=== PATIENT | male | born 1960 | race Caucasian/White ===

== ENCOUNTER 2017-02-04 01:12 | Emergency (ER) | payer OTHER ==
[2017-02-04] MEDS ORDERED: Ketorolac 60 MG/2 ML SDV IM ONE (01:52)
--- NOTE | 2017-02-04 02:00 | EDM.PDOC ---
ED HPI GENERAL MEDICAL PROBLEM - General Chief Complaint: ENT Problem Stated Complaint: R EAR PAIN Time Seen by Provider: 02/04/17 01:14 Source of Information: Reports: Patient, Family History Limitations: Reports: No Limitations - History of Present Illness INITIAL COMMENTS - FREE TEXT/NARRATIVE: right ear pain; this is a 57 year old male presents to ER with family, concerns of worsen ear pain. He reports the pain started about 2-3 days ago, has been up all night with pain. reports general healthy. Onset: Gradual Duration: Day(s): (2), Getting Worse Location: Reports: Other (right ear) Quality: Reports: Sharp, Throbbing Severity: Severe Improves with: Reports: None Worsens with: Reports: None Associated Symptoms: Reports: No Other Symptoms, Other (reports having a cold which has since resolved) - Related Data Allergies Allergy/AdvReac Type Severity Reaction Status Date / Time No Known Allergies Allergy Verified 02/04/17 01:22 Home Meds: Home Meds NK [No Known Home Meds] 02/04/17 [History] Past Medical History Oncologic (Cancer) History: Reports: Other (See Below) Other Oncologic History: kidney - Past Surgical History Male Surgical History: Reports: Nephrectomy Other Male Surgeries/Procedures: C/A Social & Family History - Tobacco Use Smoking Status *Q: Never Smoker ED ROS ENT - Review of Systems Review Of Systems: See Below Constitutional: Reports: Other (pain) HEENT: Reports: Ear Discharge (right), Ear Pain (right) Respiratory: Reports: No Symptoms Cardiovascular: Reports: No Symptoms Endocrine: Reports: No Symptoms GI/Abdominal: Reports: No Symptoms Immunologic: Reports: No Symptoms ED EXAM, ENT - Physical Exam Exam: See Below Exam Limited By: No Limitations General Appearance: Alert, WD/WN, Mild Distress Eye Exam: Bilateral Eye: Normal Inspection Ears: Canal Discharge (right;white thin, no odor), Canal Swelling (right), TM Bulging (right), TM Erythema (right) Nose: Normal Inspection, Normal Mucousa Mouth/Throat: Normal Inspection, Normal Gums, Normal Lips, Normal Oropharynx, Normal Teeth Head: Atraumatic, Normocephalic Neck: Normal Inspection, Supple Respiratory/Chest: No Respiratory Distress, Lungs Clear, Normal Breath Sounds, No Accessory Muscle Use, Chest Non-Tender Cardiovascular: Regular Rate, Rhythm, No Murmur Psychiatric: Normal Affect, Normal Mood Skin: Warm, Dry, Intact, Normal Color, No Rash Lymphatic: No Adenopathy Course - Vital Signs Last Recorded V/S: Last Vital Signs Temp 36.2 C 02/04/17 01:27 Pulse 67 02/04/17 01:27 Resp 14 02/04/17 01:27 BP 140/89 02/04/17 01:27 Pulse Ox 98 02/04/17 01:27 - Orders/Labs/Meds Orders: Active Orders 24 hr Category Date Time Status Ketorolac [Toradol] Med 02/04/17 01:52 Once 60 mg IM ONETIME ONE Medication Orders Ketorolac Tromethamine (Toradol) 60 mg IM ONETIME ONE Stop: 02/04/17 01:53 Meds: Medications Generic Name Dose Route Start Last Admin Trade Name Isrraelq PRN Reason Stop Dose Admin Ketorolac Tromethamine 60 mg 02/04/17 01:52 Toradol IM 02/04/17 01:53 ONETIME ONE - Re-Assessments/Exams Free Text/Narrative Re-Assessment/Exam: 02/04/17 02:05 Toradol 60mg IM for acute pain Departure - Departure Time of Disposition: 02:06 Disposition: Home, Self-Care 01 Condition: Good Clinical Impression: Otitis externa, Otitis media - Discharge Information Referrals: PCP,None [Primary Care Provider] - Care Plan Goals: Ear infection -Augmentin 875mg take one po every 12 hours -Percocet 5-325mg take 1-2 every 4 to 6 hours as needed for pain -may take over the counter Motrin 600 to 800mg every 8 hours as needed for pain return to ER, Urgent Care or Clinic for any increased pain, fever, chills, nausea, vomiting, diarrhea, rash or not improved. follow up with Primary Care for recheck in 10 days. - Problem List & Annotations (1) Otitis externa SNOMED Code(s): 6385126 Code(s): H60.90 - UNSPECIFIED OTITIS EXTERNA, UNSPECIFIED EAR Status: Acute Priority: High Current Visit: Yes Qualifiers: Otitis externa type: diffuse Chronicity: acute Laterality: right Qualified Code(s): H60.311 - Diffuse otitis externa, right ear (2) Otitis media SNOMED Code(s): 62717010 Code(s): H66.90 - OTITIS MEDIA, UNSPECIFIED, UNSPECIFIED EAR Status: Acute Priority: High Current Visit: Yes Qualifiers: Chronicity: acute Laterality: right Recurrence: not specified as recurrent Spontaneous tympanic membrane rupture: without spontaneous rupture - Problem List Review Problem List Initiated/Reviewed/Updated: Yes - My Orders Last 24 Hours: My Active Orders 02/04/17 01:52 Ketorolac [Toradol] 60 mg IM ONETIME ONE - Assessment/Plan Last 24 Hours: My Active Orders 02/04/17 01:52 Ketorolac [Toradol] 60 mg IM ONETIME ONE Plan: Ear infection -Augmentin 875mg take one po every 12 hours -Percocet 5-325mg take 1-2 every 4 to 6 hours as needed for pain -may take over the counter Motrin 600 to 800mg every 8 hours as needed for pain return to ER, Urgent Care or Clinic for any increased pain, fever, chills, nausea, vomiting, diarrhea, rash or not improved. follow up with Primary Care for recheck in 10 days.
== END 2017-02-04 02:19 | disposition home or self-care (01) ==
LOC: JP.ED 01:12
DX: H66.91 Otitis media, unspecified, right ear (principal); H60.91 Unspecified otitis externa, right ear
CPT/HCPCS: 96372; 99283; J1885